=== PATIENT | female | born 1995 | race Caucasian/White ===

== ENCOUNTER 2017-11-22 14:04 | Emergency (ER) | payer BC ==
[~2017-11-22] VITALS: Ht 167.6 cm; Wt 77.1 kg
[~2017-11-22 14:04] MED LIST: AMOX500 PO; BENADRYL; CODACE30 PO; CODACEE120 PO; NEOPOLHCSU OT; PROM12.5S PR; Percocet 5-3251 EACH PO; RXCODACET PO; UNK ABX
[2017-11-22] MEDS ORDERED: Norco 5-325 Ta1 EACH PO ×2 (16:00→16:23)
[2017-11-22] MEDS ORDERED: Amoxicillin875 MG PO (16:00)
[2017-11-22] MEDS ORDERED: MONDOXYNE NL100 MG PO (16:22)
== END 2017-11-22 16:32 | disposition home or self-care (01) ==
LOC: ER 14:04
DX: S02.40DA Maxillary fracture, left side, initial encounter for closed fracture (principal); F17.210 Nicotine dependence, cigarettes, uncomplicated; Z88.0 Allergy status to penicillin; Z88.2 Allergy status to sulfonamides; Z88.8 Allergy status to other drugs, medicaments and biological substances; W01.0XXA Fall on same level from slipping, tripping and stumbling without subsequent striking against object, initial encounter
CPT/HCPCS: 70486; 99284

== ENCOUNTER → 2018-01-18 | Outpatient (CLI) | payer BC ==
[~2018-01-18] MED LIST changes: +Amoxicillin875 MG PO; +MONDOXYNE NL100 MG PO; +Norco 5-325 Ta1 EACH PO
[2018-01-19 09:46] LABS: Source Cervix
== END ==
LOC: LAB 14:55 → LAB SHORT 14:55
PROVIDERS: Obstetrics & Gynecology
DX: Z11.3 Encounter for screening for infections with a predominantly sexual mode of transmission (principal)
CPT/HCPCS: 87491; 87591; 87661

== ENCOUNTER 2018-02-26 10:13 | Observation (INO) | payer BC ==
[~2018-02-26] VITALS: Ht 167.6 cm; Wt 72.6 kg
[2018-02-26 10:40] LABS: BASOPHILS ABSOLUTE AUTO 0.07 K/mm3 (0.00-0.23); BASOPHILS PERCENT AUTO 1 % (0-2); EOSINOPHILS ABSOLUTE AUTO 0.27 K/mm3 (0.00-0.68); EOSINOPHILS PERCENT AUTO 3 % (0-6); Hematocrit 44.3 % (33.0-51.0); Hemoglobin 14.8 g/dL (11.5-16.0); IMMATURE GRAN ABSOLUTE AUTO 0.03 K/mm3 (0.00-0.10); IMMATURE GRAN PERCENT AUTO 0 % (0-1); LYMPHOCYTES ABSOLUTE AUTO 2.77 K/mm3 (0.84-5.20); LYMPHOCYTES PERCENT AUTO 28 % (21-46); MONOCYTES ABSOLUTE AUTO 0.84 K/mm3 (0.16-1.47); MONOCYTES PERCENT AUTO 9 % (4-13); Mean Corpuscular HGB Conc 33.4 g/dL (31.5-36.5); Mean Corpuscular Volume 93 fL (80-100); Mean Platelet Volume 9.8 fL (9.1-12.4); NEUTROPHILS ABSOLUTE AUTO 5.96 K/mm3 (1.96-9.15); NEUTROPHILS PERCENT AUTO 60 % (41-73); Platelet Count 247 K/mm3 (150-400); RDW Coefficient Variation 12.4 % (11.7-14.2); RDW Standard Deviation 42.8 fL (35.1-46.3); Red Blood Cell Count 4.78 M/mm3 (3.80-5.20); White Blood Cell Count 9.94 K/mm3 (4.00-11.30)
[2018-02-26 10:55] LABS: Source, Urine Clean Catch
[2018-02-26 10:58] LABS: Alanine Aminotransfer (ALT/SGP 144 U/L (12-78); Albumin, Blood 3.6 g/dL (3.4-5.0); Albumin/Globulin Ratio 0.8 (0.8-1.8); Alk Phos 70 U/L (50-136); Anion Gap 10 mmol/L (6-16); Aspartate Aminotrans (AST/SGOT 50 U/L (12-37); Bilirubin, Total 0.5 mg/dL (0.1-1.0); Blood Urea Nitrogen 7 mg/dL (8-24); Bun/Creatinine Ratio 10.7 (12.0-20.0); CO2, Blood 22 mmol/L (21-32); Calcium, Blood 9.3 mg/dL (8.5-10.1); Chloride, Blood 109 mmol/L (98-108); Creatinine, Blood 0.66 mg/dL (0.40-1.00); Globulin, Blood 4.4 g/dL (2.2-4.0); Glomerular Filtration Rate >60 (60-); Glucose, Blood 97 mg/dL (70-99); Potassium, Blood 3.8 mmol/L (3.5-5.5); Sodium, Blood 141 mmol/L (136-145)
[2018-02-26 10:59] LABS: Bilirubin, Urine Neg (Neg); Blood, Urine 3+ (Neg); Glucose Qualitative, Urine Neg (Neg); Ketones, Urine Neg (Neg); Leukocyte Esterase, Urine 2+ (Neg); Nitrite, Urine Neg (Neg); Protein, Urine 1+ (Neg); Specific Gravity, Urine 1.025 (1.003-1.022); Urobilinogen, Urine NORM (Normal)
[2018-02-26 11:07] LABS: Appearance, Urine Hazy (Clear); Color, Urine Yellow (P-Yellow)
[2018-02-26 11:09] LABS: Bacteria Many /hpf; Calcium Oxalate Crystals Mod /hpf; Squamous Epithelial Cells Many /hpf (Few)
== END 2018-02-26 17:30 | disposition home or self-care (01) ==
LOC: ER 10:13 → SURS 10:15 → ER 12:40 → SURS 12:40
PROVIDERS: Emergency Medicine; Surgery
PROC: BF101ZZ Fluoroscopy of Bile Ducts using Low Osmolar Contrast (ICD-10-PCS; principal; 2018-02-26 16:00)
PROC: 0FT44ZZ Resection of Gallbladder, Percutaneous Endoscopic Approach (ICD-10-PCS; principal; 2018-02-26 16:00)
DX: K80.12 Calculus of gallbladder with acute and chronic cholecystitis without obstruction (principal); F17.210 Nicotine dependence, cigarettes, uncomplicated; Z88.0 Allergy status to penicillin; Z88.2 Allergy status to sulfonamides; Z88.8 Allergy status to other drugs, medicaments and biological substances; Z83.79 Family history of other diseases of the digestive system
CPT/HCPCS: 36415; 74300; 76705; 80053; 81001; 81025; 83690; 85025; 88304; 99285; C1729; J0690; J1100; J1885; J2250; J2405; J3010; J7120

== ENCOUNTER 2019-08-31 04:41 | Emergency (ER) | payer OTHER ==
[~2019-08-31] VITALS: Ht 167.6 cm; Wt 77.1 kg
== END 2019-08-31 05:45 | disposition home or self-care (01) ==
LOC: ER 04:41
DX: M54.5 Low back pain (principal); Z88.0 Allergy status to penicillin; Z88.2 Allergy status to sulfonamides; Z88.8 Allergy status to other drugs, medicaments and biological substances; F17.290 Nicotine dependence, other tobacco product, uncomplicated
CPT/HCPCS: 96372; 99283-25; J1885

== ENCOUNTER → 2019-09-09 | Outpatient (CLI) | payer OTHER ==
[2019-09-11 05:07] LABS: HBSAG SCREEN Negative (Negative); HCV ANTIBODY <0.1 (0.0-0.9)
[2019-09-11 09:06] LABS: HIV SCREEN 4TH GENERATION WRFX Non Reactive (Non Reactive)
== END | disposition home or self-care (01) ==
LOC: LAB EV 14:50 → LAB SHORT 14:50
PROVIDERS: Physician Assistant Surgical
DX: Z20.9 Contact with and (suspected) exposure to unspecified communicable disease (principal)
CPT/HCPCS: 84460; 86317; 86803; 87340; 87389

== ENCOUNTER → 2019-10-21 | Outpatient (CLI) | payer OTHER ==
[2019-10-23 09:06] LABS: HIV SCREEN 4TH GENERATION WRFX Non Reactive (Non Reactive)
== END | disposition home or self-care (01) ==
LOC: LAB EV 18:02 → LAB SHORT 18:02
PROVIDERS: Internal Medicine
DX: Z20.9 Contact with and (suspected) exposure to unspecified communicable disease (principal)
CPT/HCPCS: 86803; 87389

== ENCOUNTER → 2019-12-09 | Outpatient (CLI) | payer OTHER ==
[2019-12-12 09:08] LABS: HIV SCREEN 4TH GENERATION WRFX Non Reactive (Non Reactive)
== END | disposition home or self-care (01) ==
LOC: LAB SHORT 19:23 → LAB EV 19:23
PROVIDERS: Internal Medicine
DX: Z20.9 Contact with and (suspected) exposure to unspecified communicable disease (principal)
CPT/HCPCS: 86803; 87389

== ENCOUNTER → 2020-03-13 | Outpatient (CLI) | payer OTHER ==
[2020-03-14 08:09] LABS: HIV SCREEN 4TH GENERATION WRFX Non Reactive (Non Reactive)
== END | disposition home or self-care (01) ==
LOC: LAB SHORT 13:59 → LAB EV 13:59
PROVIDERS: Physician Assistant
DX: Z20.9 Contact with and (suspected) exposure to unspecified communicable disease (principal)
CPT/HCPCS: 84460; 86317; 86803; 87389

== ENCOUNTER 2020-08-31 21:37 | Emergency (ER) | payer OTHER ==
[~2020-08-31] VITALS: Ht 170.2 cm; Wt 81.7 kg
== END 2020-08-31 23:16 | disposition home or self-care (01) ==
LOC: ER 21:37
DX: S83.91XA Sprain of unspecified site of right knee, initial encounter (principal); F17.210 Nicotine dependence, cigarettes, uncomplicated; Z88.0 Allergy status to penicillin; Z88.2 Allergy status to sulfonamides; Z88.8 Allergy status to other drugs, medicaments and biological substances; X50.1XXA Overexertion from prolonged static or awkward postures, initial encounter; Y92.89 Other specified places as the place of occurrence of the external cause; Y99.0 Civilian activity done for income or pay
CPT/HCPCS: 29505; 73562-RT; 99283-25

== ENCOUNTER → 2022-01-19 | Outpatient (CLI) | payer OTHER | END | disposition home or self-care (01) | LOC: LAB SHORT 08:47 → LAB 08:47 | DX: R30.0 Dysuria (principal) | CPT/HCPCS: 87086 ==

== ENCOUNTER → 2022-01-23 | Outpatient (CLI) | payer OTHER ==
[2022-01-23 20:08] LABS: T. vaginalis (DNA Probe) Negative (NEGATIVE)
[2022-01-23 20:09] LABS: Candida species (DNA Probe) Positive (NEGATIVE); G. vaginalis (DNA Probe) Positive (NEGATIVE)
[2022-01-25 09:10] LABS: HIV AB/P24 AG SCREEN Non Reactive (Non Reactive)
[2022-01-25 10:10] LABS: HBSAG SCREEN Negative (Negative); HCV AB <0.1 (0.0-0.9); HEP A AB, IGM Negative (Negative); HEP B CORE AB, IGM Negative (Negative)
[2022-01-26 04:06] LABS: CHLAMYDIA TRACHOMATIS, NAA Negative (Negative)
== END | disposition home or self-care (01) ==
LOC: LAB SHORT 15:02
PROVIDERS: Physician Assistant
DX: Z20.2 Contact with and (suspected) exposure to infections with a predominantly sexual mode of transmission (principal)
CPT/HCPCS: 80074; 86592; 87389; 87480; 87491; 87510; 87591; 87660

== ENCOUNTER 2022-07-15 17:53 | Emergency (ER) | payer BC ==
[~2022-07-15] VITALS: Ht 170.2 cm; Wt 88.5 kg
== END 2022-07-15 18:42 | disposition home or self-care (01) ==
LOC: ER 17:53
DX: M25.462 Effusion, left knee (principal); S83.207A Unspecified tear of unspecified meniscus, current injury, left knee, initial encounter; X58.XXXA Exposure to other specified factors, initial encounter; F17.210 Nicotine dependence, cigarettes, uncomplicated; Z88.0 Allergy status to penicillin; Z88.2 Allergy status to sulfonamides; Z88.8 Allergy status to other drugs, medicaments and biological substances
CPT/HCPCS: 99283

== ENCOUNTER 2022-08-17 03:35 | Emergency (ER) | payer BC ==
[~2022-08-17] VITALS: Ht 167.6 cm; Wt 89.9 kg
[2022-08-17] MEDS ORDERED: OXYC5 PO (05:40)
== END 2022-08-17 05:47 | disposition home or self-care (01) ==
LOC: ER 03:35
DX: S42.032A Displaced fracture of lateral end of left clavicle, initial encounter for closed fracture (principal); Y09 Assault by unspecified means; F17.210 Nicotine dependence, cigarettes, uncomplicated; Z88.0 Allergy status to penicillin; Z88.2 Allergy status to sulfonamides; Z88.8 Allergy status to other drugs, medicaments and biological substances
CPT/HCPCS: 73000; 73030; A9270; J1885

== ENCOUNTER → 2024-04-20 | Outpatient (CLI) | payer BC ==
[~2024-04-20] MED LIST changes: +OXYC5 PO
[2024-04-21 16:20] LABS: HEPATITIS B SURFACE ANTIGEN Negative (Negative)
[2024-04-21 19:42] LABS: HEPATITIS C AB CIA INTERP Negative (Negative); HEPATITIS C ANTIBODY CIA INDEX 0.02 IV
[2024-04-21 19:48] LABS: HIV 1,2 COMBO ANTIGEN/ANTIBODY Negative (Negative)
== END ==
LOC: LAB SHORT 14:48 → LAB 14:48
PROVIDERS: Registered Nurse Community Health
DX: Z11.3 Encounter for screening for infections with a predominantly sexual mode of transmission (principal); Z20.2 Contact with and (suspected) exposure to infections with a predominantly sexual mode of transmission
CPT/HCPCS: 86592; 86803; 87340; 87389

== ENCOUNTER → 2024-04-20 | Outpatient (CLI) | payer BC ==
[2024-04-23 13:38] LABS: APTIMA MEDIA TYPE MultiTest Swab; C. TRACHOMATIS BY TMA Negative (Negative); N. GONORRHOEAE BY TMA Negative (Negative); SPECIMEN SOURCE Vaginal; T. VAGINALIS BY TMA Negative (Negative)
== END ==
LOC: LAB SHORT 13:48 → LAB 13:48
PROVIDERS: Registered Nurse Community Health
DX: Z11.3 Encounter for screening for infections with a predominantly sexual mode of transmission (principal); Z20.2 Contact with and (suspected) exposure to infections with a predominantly sexual mode of transmission
CPT/HCPCS: 87491; 87591; 87661

== ENCOUNTER 2024-09-04 19:42 | Emergency (ER) | payer OTHER, BC ==
[~2024-09-04] VITALS: Ht 170.2 cm; Wt 95.2 kg
[2024-09-04 20:57] VITALS: BP 143/98
== END 2024-09-04 22:33 | disposition home or self-care (01) ==
LOC: ER 19:42
DX: S49.92XA Unspecified injury of left shoulder and upper arm, initial encounter (principal); W01.0XXA Fall on same level from slipping, tripping and stumbling without subsequent striking against object, initial encounter; Z88.0 Allergy status to penicillin; Z88.2 Allergy status to sulfonamides; Z91.013 Allergy to seafood
CPT/HCPCS: 73030; 99283-25

== ENCOUNTER 2025-01-04 20:44 | Emergency (ER) | payer BC ==
[~2025-01-04] VITALS: Ht 170.2 cm; Wt 95.2 kg
[2025-01-04 20:48] VITALS: BP 124/88
[2025-01-04 21:16] LABS: Source, Urine Voided
[2025-01-04 21:26] LABS: Appearance, Urine Clear (Clear); Bilirubin, Urine Neg (Neg); Blood, Urine Neg (Neg); Color, Urine Yellow (P-Yellow); Glucose Qualitative, Urine Neg (Neg); Ketones, Urine Neg (Neg); Leukocyte Esterase, Urine Neg (Neg); Nitrite, Urine Neg (Neg); Protein, Urine Neg (Neg); Urobilinogen, Urine NORM (Normal)
== END 2025-01-04 21:49 | disposition home or self-care (01) ==
LOC: ER 20:44
PROVIDERS: Emergency Medicine
DX: R10.2 Pelvic and perineal pain (principal); F17.210 Nicotine dependence, cigarettes, uncomplicated; Z88.0 Allergy status to penicillin; Z88.2 Allergy status to sulfonamides; Z88.8 Allergy status to other drugs, medicaments and biological substances; Z91.013 Allergy to seafood
CPT/HCPCS: 81003; 81025; 99283

== ENCOUNTER → 2025-01-24 | Outpatient (CLI) | payer BC ==
[2025-01-31 15:46] LABS: HPV HIGH RISK BY TMA Detected; HPV SOURCE Cervical
[2025-02-01 11:14] LABS: HPV GENOTYPE 16 BY TMA Not Detected; HPV GENOTYPE 18/45 BY TMA Not Detected; HPVG SOURCE Cervical
== END | disposition home or self-care (01) ==
LOC: LAB 11:32 → LAB SHORT 11:32
PROVIDERS: Advanced Practice Midwife
DX: Z01.419 Encounter for gynecological examination (general) (routine) without abnormal findings (principal)
CPT/HCPCS: 87624; 87625; G0123

== ENCOUNTER 2025-04-27 07:05 | Day surgery (SDC) | payer BC ==
[~2025-04-27] VITALS: Ht 170.2 cm; Wt 93.8 kg
[2025-04-27] MEDS ORDERED: Oxytocin 10 Unit / ML Vial ONE (07:06)
[2025-04-27] MEDS ORDERED: Bupivacaine 0.5% W/EPI 1:200000 SDV 30 ML Vial ONE (07:06)
[2025-04-27] MEDS ORDERED: Adipex-P37.5 M1 PO (07:41)
[2025-04-27] MEDS ORDERED: Ondansetron HCl 2 MG / ML 2ML Vial ONE (08:07)
[2025-04-27] MEDS ORDERED: Dexamethasone Sod Phos 10 MG/ML 1ML VIAL ONE (08:07)
[2025-04-27] MEDS ORDERED: Midazolam HCl 1MG / ML 2ML Vial ONE (08:07)
[2025-04-27] MEDS ORDERED: FentaNYL Citrate 50 MCG/ML 2 ML Injection ONE (08:07)
[2025-04-27] MEDS ORDERED: Glycopyrrolate 0.2 MG/ML 5ML VIAL ONE (08:45)
--- NOTE | 2025-04-27 09:20 | NUR ---
04/27/25 0920 CHANEL CASTILLO PT CONTINUES TO DENY PAIN AND NAUSEA.
--- NOTE | 2025-04-27 09:41 | NUR ---
04/27/25 0941 CHANEL CASTILLO PT AUNT NANDINI IN AT BEDSIDE. PT SITTING FORWARD. DECLINES BLANKET OR RECLINING. PT DOING WELL. EATING AND DRINKING WO DIFF. REPORT GIVEN TO TERENEC SANFORD
[2025-04-27] MEDS ORDERED: Rocuronium Bromide 10 MG/ML 5ML Injection IV ONE (10:02)
[2025-04-27] MEDS ORDERED: Sugammadex Sodium 200 MG/2ML SDV (100 MG/ML) ONE (10:02)
[2025-04-27 10:13] VITALS: BP 125/82
== END 2025-04-27 10:14 | disposition home or self-care (01) ==
LOC: ORSCSDS 07:05
PROVIDERS: Obstetrics & Gynecology
PROC: 0UBC7ZX Excision of Cervix, Via Natural or Artificial Opening, Diagnostic (ICD-10-PCS; principal; 2025-04-27 08:30)
DX: D06.9 Carcinoma in situ of cervix, unspecified (principal); E66.9 Obesity, unspecified; Z68.32 Body mass index [BMI] 32.0-32.9, adult; F17.290 Nicotine dependence, other tobacco product, uncomplicated
CPT/HCPCS: 88305; A9270; J1100; J2250; J2405; J2590; J2704; J3010